=== PATIENT | male | born 1950 | race Caucasian/White ===

== ENCOUNTER 2017-10-23 07:22 | Outpatient (CLI) | payer OTHER | END 2017-10-23 07:36 | disposition home or self-care (01) | LOC: NUCLEAR 07:22 | DX: I20.0 Unstable angina (principal); E78.2 Mixed hyperlipidemia; I25.10 Atherosclerotic heart disease of native coronary artery without angina pectoris; E11.8 Type 2 diabetes mellitus with unspecified complications | CPT/HCPCS: 78452; 93017; A9500 ==